=== PATIENT | male | born 1995 | race Two or more races ===

== ENCOUNTER 2018-06-04 20:16 | Emergency (ER) | payer OTHER ==
[2018-06-04] MEDS ORDERED: ACETAMINOPHEN 325 MG TABLET PO ONE (20:22)
[2018-06-04] MEDS ORDERED: FENTANYL CITRATE INJ/PF 100 MCG/2 ML AMPUL IV ONE (20:27)
[2018-06-04] MEDS ORDERED: KETOROLAC TROMETHAMINE INJ/PF 30 MG/1 ML SDV IV ONE (20:27)
[2018-06-04] MEDS ORDERED: ONDANSETRON HCL INJ/PF 4 MG/2 ML SDV IV ONE (20:27)
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
--- NOTE | 2018-06-04 21:26 | RADIOLOGY REPORT (SQ) ---
EXAM DESCRIPTION: HAND RIGHT 3 VIEWS COMPLETED DATE/TIME: 06/04/2018 9:12 pm REASON FOR STUDY: Injury/deformity COMPARISON: None. EXAM PARAMETERS: NUMBER OF VIEWS: Three views. TECHNIQUE: AP, lateral and oblique radiographic images acquired of the right hand. LIMITATIONS: None. FINDINGS: MINERALIZATION: Normal. BONES: There is a fracture involving the base of the 4th metacarpal. JOINTS: No effusions. SOFT TISSUES: No soft tissue swelling. No foreign body. OTHER: No other significant finding. IMPRESSION: Fracture of the base of the 4th metacarpal. TECHNICAL DOCUMENTATION: JOB ID: [id number] [employer]- All Rights Reserved Reading location - IP/workstation name: [email or web address]
--- NOTE | 2018-06-04 21:27 | RADIOLOGY REPORT (SQ) ---
EXAM DESCRIPTION: WRIST RIGHT 3 VIEWS COMPLETED DATE/TIME: 06/04/2018 9:12 pm REASON FOR STUDY: Injury COMPARISON: None. NUMBER OF VIEWS: Three views. TECHNIQUE: AP, lateral, and oblique radiographic images acquired of the right wrist. LIMITATIONS: None. FINDINGS: MINERALIZATION: Normal. BONES: Fracture of the base of the 4th metacarpal. No wrist fracture is appreciated. SOFT TISSUES: No soft tissue swelling. No foreign body. OTHER: No other significant finding. IMPRESSION: Fracture of the base of the 4th metacarpal. No wrist fracture is seen. TECHNICAL DOCUMENTATION: JOB ID: [id number] [employer]- All Rights Reserved Reading location - IP/workstation name: [email or web address]
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
[2018-06-04] MEDS ORDERED: HYDROCODONE/ACETAMINOPHEN 5-325 MG (6 TAB/ER DISP) PO PRN (22:18)
[2018-06-04 22:58] VITALS: BP 121/68
== END 2018-06-04 23:08 | disposition home or self-care (01) ==
LOC: ER 20:16
DX: S62.344A Nondisplaced fracture of base of fourth metacarpal bone, right hand, initial encounter for closed fracture (principal); W22.09XA Striking against other stationary object, initial encounter
CPT/HCPCS: 99283; 96374; 96375; 73130; 73110; 29125; J3010; J1885; J2405

== ENCOUNTER 2019-07-24 09:34 | Emergency (ER) | payer OTHER ==
[2019-07-24] MEDS ORDERED: LIDOCAINE 1% INJ-PF (10 MG/ML) 30 ML SDV NEB ONE (10:11)
[2019-07-24] MEDS ORDERED: DEXAMETHASONE 4 MG TABLET PO ONE (10:12)
--- NOTE | 2019-07-24 10:12 | ER Document Report ---
HPI - HPI Time Seen by Provider: 07/24/19 09:58 Pain Level: 4 Notes: Patient is an otherwise healthy 24-year-old male presented to the emergency department chief complaint of sore throat that is been ongoing for 2 days. He reports he has been taking mymz-oau-navqdye Tylenol and ibuprofen and taking throat lozenges reluctantly relief. Patient denies any difficulty breathing, fever, shortness of breath or difficulty swallowing. He denies any past medical history. - CONSTITUTIONAL Constitutional: DENIES: Fever, Chills - EENT EENT: REPORTS: Sore Throat Past Medical History - General Information source: Patient - Social History Smoking Status: Never Smoker Frequency of alcohol use: Rare Family History: Reviewed & Not Pertinent Patient has suicidal ideation: No Patient has homicidal ideation: No - Medical History Medical History: Negative Renal/ Medical History: Denies: Hx Peritoneal Dialysis Surgical Hx: Negative - Immunizations Immunizations up to date: Yes Vertical Provider Document - CONSTITUTIONAL Notes: PHYSICAL EXAMINATION: GENERAL: Well-appearing, well-nourished and in no acute distress. HEAD: Atraumatic, normocephalic. EYES: Pupils equal round extraocular movements intact, conjunctiva are normal. ENT: Nares patent, no tonsillar swelling or exudates noted, oropharynx mildly erythematous. NECK: Normal range of motion, no cervical lymphadenopathy noted. LUNGS: No respiratory distress, lung sounds clear and equal bilaterally. Musculoskeletal: Normal range of motion NEUROLOGICAL: Normal speech, normal gait. PSYCH: Normal mood, normal affect. SKIN: Warm, Dry, normal turgor, no rashes or lesions noted. - INFECTION CONTROL TRAVEL OUTSIDE OF THE [place] IN LAST 30 DAYS: No Course - Re-evaluation Re-evalutation: Patient was given lidocaine nebulizer here in the emergency department as well as a dose of Decadron. Rapid strep is negative. Influenza is negative. Likely viral illness. All test results were discussed with patient, patient verbalizes understanding and agreement with plan. Patient will take [id number] medications for symptom control pending throat culture. The patient's emergency department workup and current diagnosis were explained to the patient and or family. Follow-up instructions were provided. Medication s if prescribed were discussed. Instructions for when to return to the emergency department including specific worrisome symptoms were discussed with the patient and/or family. - Vital Signs Vital signs: Temp Pulse Resp BP Pulse Ox 99.4 F 96 18 141/66 H 97 07/24/19 09:36 07/24/19 09:36 07/24/19 09:36 07/24/19 09:36 07/24/19 09:36 Discharge - Discharge Clinical Impression: Sore throat, Body aches, Viral illness Condition: Stable Disposition: HOME, SELF-CARE Additional Instructions: Viral Syndrome The physician has diagnosed a viral infection. Viruses not only cause "colds," but can cause many different symptoms including generalized aching, fever, headache, cough, diarrhea, nausea, vomiting, and fatigue. The treatment, for the most part, is simply relief of symptoms. This means that antibiotics are usually not given. Rest, fluids, pain medications and, occasionally, medication for the specific symptoms that are most bothersome will be prescribed. Use good handwashing to avoid passing the virus to others. Shared toys should be cleaned with disinfectant. Clean the toilets, sinks, and counter surfaces in bathrooms. Launder clothing in hot water. Contact the physician if you develop any new or unusual symptoms such as severe headache, stiff neck, high fever, chest pain, productive cough, or shortness of breath. You should be rechecked if you don't see marked improvement within seven to 10 days. Forms: Return to Work
[2019-07-24 10:52] LABS: A TYPE INFLUENZA AG NEGATIVE (NEGATIVE); B INFLUENZA AG NEGATIVE (NEGATIVE)
[2019-07-24 11:45] VITALS: BP 125/65
== END 2019-07-24 11:41 | disposition home or self-care (01) ==
LOC: ER 09:34
DX: J02.9 Acute pharyngitis, unspecified (principal); B34.9 Viral infection, unspecified
CPT/HCPCS: 87070; 87880; 87804; J3490; 94640; 99283

== ENCOUNTER 2019-07-25 18:25 | Emergency (ER) | payer OTHER ==
[2019-07-25] MEDS ORDERED: ONDANSETRON 4 MG TAB.RAPDIS PO ONE (18:45)
--- NOTE | 2019-07-25 18:49 | ER Document Report ---
ED Medical Screen (RME) - General Chief Complaint: Abdominal Pain Stated Complaint: ABDOMINAL PAIN,HEADACHES,VOMITING Time Seen by Provider: 07/25/19 18:41 Notes: 24-year-old male presented to ED for complaint of right lower quadrant and upper quadrant abdominal pain. He states he was seen yesterday for some mild abdominal pain sore throat and flulike symptoms. Fluid strep test were done yesterday and they were negative. He states this morning he started having some more significant lower right quadrant pain and this is now developed in the right upper and lower quadrant pain. He does have rebound tenderness at this time on the right lower quadrant he does not have any tenderness to the upper quadrant but he states he has had nausea and vomiting. He states the emesis was a dark brown in color. He states he does have a history of reflux but has not taken his reflux medicine recently. He states he used to get an endoscopy but has not had any since he was in the he is active to light duty . He states he does not smoke he occasionally drinks no illicit drugs. He does live with his family. He states his highest temperature was 99.9. Patient is able to jump up and down without increase in pain. I have greeted and performed a rapid initial assessment of this patient. A comprehensive ED assessment and evaluation of the patient, analysis of test results and completion of medical decision making process will be conducted by an additional ED providers. TRAVEL OUTSIDE OF THE [place] IN LAST 30 DAYS: No - Related Data Allergies/Adverse Reactions: No Known Allergies Allergy (Verified 07/25/19 18:38) Home Medications: uncompliant with nexium Past Medical History - Social History Chew tobacco use (# tins/day): No Frequency of alcohol use: Occasional Drug Abuse: None Renal/ Medical History: Denies: Hx Peritoneal Dialysis - Immunizations Immunizations up to date: Yes Physical Exam - Vital signs Vitals: Temp Pulse Resp BP Pulse Ox 99.2 F 90 18 137/76 H 100 07/25/19 18:29 07/25/19 18:29 07/25/19 18:29 07/25/19 18:29 07/25/19 18:29 Course - Vital Signs Vital signs: Temp Pulse Resp BP Pulse Ox 99.2 F 90 18 137/76 H 100 07/25/19 18:29 07/25/19 18:29 07/25/19 18:29 07/25/19 18:29 07/25/19 18:29
[2019-07-25 19:18] LABS: ABSOLUTE LYMPHOCYTES (AUTO) 1.1 10^3/uL (0.5-4.7); ABSOLUTE MONOCYTES (AUTO) 1.2 10^3/uL (0.1-1.4); ABSOLUTE NEUT (AUTO) 10.3 10^3/uL (1.7-8.2); BASOPHILS % (AUTO) 0.1 % (0-2); EOSINOPHILS % (AUTO) 0.1 % (0-6); HEMATOCRIT 48.5 % (37.9-51.0); HEMOGLOBIN 16.8 g/dL (13.5-17.0); LYMPHOCYTES % (AUTO) 8.6 % (13-45); MEAN CORPUSCULAR HEMOGLOBIN 30.3 pg (27.0-33.4); MEAN CORPUSCULAR HGB CONC 34.7 g/dL (32.0-36.0); MEAN CORPUSCULAR VOLUME 87 fl (80-97); MONOCYTES % (AUTO) 9.4 % (3-13); PLATELET COUNT 277 10^3/uL (150-450); RED BLOOD COUNT 5.56 10^6/uL (4.35-5.55); RED CELL DISTRIBUTION WIDTH 12.7 % (11.5-14.0); SEGMENTED NEUTROPHILS % (AUTO) 81.8 % (42-78); TOTAL CELLS COUNTED % (AUTO) 100 %; WHITE BLOOD COUNT 12.6 10^3/uL (4.0-10.5)
[2019-07-25 19:29] LABS: APPEARANCE,URINE CLEAR; BILIRUBIN,URINE NEGATIVE (NEGATIVE); COLOR,URINE YELLOW; GLUCOSE, URINE NEGATIVE (NEGATIVE); KETONES,URINE NEGATIVE (NEGATIVE); LEUKOCYTE ESTERASE,URINE NEGATIVE (NEGATIVE); NITRITE,URINE NEGATIVE (NEGATIVE); PROTEIN,URINE NEGATIVE (NEGATIVE); URINE SPECIFIC GRAVITY 1.029; UROBILINOGEN,URINE NEGATIVE mg/dL (<2.0)
[2019-07-25 19:39] LABS: ALBUMIN 4.5 g/dL (3.5-5.0); ALKALINE PHOSPHATASE 59 U/L (38-126); ANION GAP 9 (5-19); ASPARTATE AMINO TRANSFERASE 19 U/L (17-59); BILIRUBIN,DIRECT 0.1 mg/dL (0.0-0.4); BILIRUBIN,TOTAL 0.4 mg/dL (0.2-1.3); BLOOD UREA NITROGEN 26 mg/dL (7-20); CALCIUM 9.3 mg/dL (8.4-10.2); CARBON DIOXIDE 29 mmol/L (22-30); CHLORIDE 102 mmol/L (98-107); GLUCOSE 113 mg/dL (75-110); POTASSIUM 3.9 mmol/L (3.6-5.0); TOTAL PROTEIN 7.4 g/dL (6.3-8.2)
[2019-07-25] MEDS ORDERED: NORMAL SALINE 1000 ML 1,000 ML IV ONE (19:54)
[2019-07-25] MEDS ORDERED: PANTOPRAZOLE SODIUM 40 MG VIAL IV ONE (20:13)
--- NOTE | 2019-07-25 21:52 | RADIOLOGY REPORT (SQ) ---
EXAM DESCRIPTION: CT ABDOMEN PELVIS WITH IV CONTRAST COMPLETED DATE/TME: 07/25/2019 19:55 CLINICAL HISTORY: 24 years, Male, RLQ pain COMPARISON: EXAM DESCRIPTION: CLINICAL HISTORY: RLQ pain COMPARISON: None Available TECHNIQUE: Contiguous axial images of the abdomen and pelvis were obtained after the administration of intravenous contrast followed by reconstruction images.This exam was performed according to our departmental dose-optimization program, which includes automated exposure control, adjustment of the mA and/or kV according to patient size and/or use of iterative reconstruction technique. FINDINGS: Calcific density at the right lung base suggests prior granulomatous disease. There are scattered shotty mesenteric lymph nodes. The liver, spleen, pancreas and kidneys are within normal limits. There is no hydronephrosis. The gallbladder is unremarkable. Adrenal glands are within normal limits. Aorta is normal in caliber and tapering. No significant free fluid. No free air. No bowel obstruction. There is no stranding of the mesenteric fat. The appendix appears normal. No evidence of periappendiceal inflammation. IMPRESSION: No acute intra-abdominal abnormality TECHNIQUE: Images stored on PACS. All CT scanners at this facility use dose modulation, iterative reconstruction, and/or weight based dosing when appropriate to reduce radiation dose to as low as reasonably achievable (ALARA). [facility]: Dose Right [facility]: CareDose [facility]: Dose Right [facility]: Teradose 4D [facility]: [employer] LIMITATIONS: None. FINDINGS: IMPRESSION: TECHNICAL DOCUMENTATION: Quality ID # [id number]: Final reports with documentation of one or more dose reduction techniques (e.g., Automated exposure control, adjustment of the mA and/or kV according to patient size, use of iterative reconstruction technique) copyright 2010 [employer]- All Rights Reserved
[2019-07-25] MEDS ORDERED: FENTANYL CITRATE INJ/PF 100 MCG/2 ML AMPUL IV ONE (21:56)
[2019-07-25] MEDS ORDERED: SUCRALFATE 1 GM TABLET PO ONE (21:56)
[2019-07-25] MEDS ORDERED: DICYCLOMINE HCL INJ 20 MG/2 ML AMPULE IM ONE (22:50)
[2019-07-25 23:48] VITALS: BP 135/60
== END 2019-07-25 23:44 | disposition home or self-care (01) ==
LOC: ER 18:25
DX: R10.31 Right lower quadrant pain (principal); R10.11 Right upper quadrant pain; R51 Headache; R11.10 Vomiting, unspecified
CPT/HCPCS: 36415; 83690; 85025; 80053; 81001; 74177; J0500; S0119; J3010; S0164; J7030; 96361; 96372; 96374; 96375; 99284